=== PATIENT | male | born 1950 | race Caucasian/White ===

== ENCOUNTER → 2016-12-29 | Outpatient (CLI) | payer BC ==
[~2016-12-29] VITALS: Ht 172.7 cm; Wt 94.0 kg
[~2016-12-29] MED LIST: 24 HOUR ALLER15.8 ML; AMLODIPINE-BEN1 EAC5 PO; AMLODIPINE-BENA1 CA3 PO; AMOXIL500 M1 PO; ASPIRIN EC81 M1 PO; ASPIRIN81 M1 PO; ASPIRIN81 M2; ASPIRIN81 M2 PO; ASPIRINEC PO; ASTELIN137 MCG INH; AVODART0.5 MG PO; BACLOFEN10 MG PO; BACTRIM DS TABL1 TA1; BACTRIM DS TABL1 TA1 PO; BENAZEPRIL HCL40 MG PO; CALCIUM 500 +1 EAC2 PO; CALCIUM 500 MG1 TAB PO; CIPRO PO; COLCHICINE0.6 M1 PO; D-20002000 UNIT PO; DEPO-TESTOTERO100 MG; DEPO-TESTOTERO100 MG IM; FISH OIL 1,0001 CAP PO; FLOMAX0.4 M1 PO; FLOMAX0.4 MG PO; FLONASE 0.05% N16 G1; GLIPIZIDE XL5 MG PO; GLUCOTROL XL PO; HCTZ PO; HYDROCHLOROTHIA25 MG PO; HYDROCODONE-APA1 T56 PO; IBUPROFEN PO; IBUPROFEN800 MG PO; ILOTYCIN1 GM OP; JANUMET 50-501 UDTAB PO; LOPRESSOR PO; LOTREL 10-40 M1 EACH PO; LOTREL 5/10 MG1 CAP PO; LOVAZA1 G PO; LOVAZA1 GM; MEDROL4 MG/DOSE- PO; MELOXICAM15 MG PO; METFORMIN HCL1000 M2 PO; METFORMIN PO; METOPROLOL SUCC25 MG PO; METOPROLOL TART25 MG PO; MOBIC15 MG PO; MUCINEX PO; MULTIVITAMINS1 EAC4; NORCO 5/325 TAB1 TAB PO; OMEGA 3 1,0001 EACH PO; OMEGA 3 FISH OI1 CAP PO; OS-CAL 500 + D500 MG PO; PANTOPRAZOLE SO40 MG PO; PERCOCET PO; PROTONIX PO; TESTOSTERON100 MG/ML IM; TOPROL XL PO; TOVIAZ4 MG PO; TYLENOL #3 PO; TYLENOL325 M1 PO; VITAMIN D-32000 UNIT PO; VOLTAREN75 MG PO; WELCHOL3.75 GM PO; WELCHOL625 M1 PO; WELCHOL625 MG PO; ZOVIRAX800 MG PO
--- NOTE | ~2016-12-29 | DS ---
Unit #: [id number] #: [id number] Patient: LOVE LYONS [id number] [facility]. [place], [place] [address] [id number] MR#: [id number] NAME: LOVE LYONS ROOM: Age: 66 Sex: M Admission Date: 12/29/2016 : 1950 Discharge Date: Attending Physician: Jhon Perez M.D. Primary Care Physician: Naren Marcum M.D. DISCHARGE SUMMARY HISTORY A 66-year-old white male with history of hypertension, insulin-dependent diabetes mellitus, hyperlipidemia, and sick sinus node syndrome with history of presyncope that necessitated a permanent pacemaker insertion and was seen in the office yesterday when he complained of exertional angina occurring on during his bicycle ride and relieved by rest. He was advised to consider cardiac catheterization to which he agreed and was brought to the hospital for the same. Details of the history and physical, I dictated in my [facility] HOSPITAL COURSE Cardiac catheterization was performed, which showed left ventricular ejection fraction of about 50% without segmental wall motion abnormalities. There was mild left ventricular hypertrophy. Left main coronary artery showed a 40% to 50% ostial stenosis. Left anterior descending artery showed two areas of 90% to 95% stenosis in its proximal third with the distal two-thirds of the artery being normal. First diagonal branch of LAD showed two areas of 99% stenosis in its proximal third with the distal vessel being normal and bypassable. Circumflex coronary was a nondominant vessel and showed both marginal branches to be normal. Right coronary artery is a large caliber dominant vessel and showed about 80% to 85% stenosis at the junction of the proximal two-thirds and distal one-third. There was 30% to 40% stenosis in the posterior left ventricular branch of RCA. Cineangiograms were reviewed with Dr. Dmitriy Joshi and Dr. Tello Segal, and everyone agreed that the patient needed coronary artery bypass graft surgery with HOANG graft to LAD, vein graft to the diagonal branch of LAD, vein graft to the marginal branch of circumflex, and a vein graft to the distal right coronary artery. The patient would be scheduled for surgery in the early part of next week because of scheduling constraints. He will go home and is advised not to do any heavy physical work. He has been taught the appropriate use of sublingual nitroglycerin for angina pectoris. I have advised him to continue Glucophage 1 g b.i.d., hold WelChol, continue benazepril 40 mg at bedtime, aspirin 81 mg daily, calcium 500 mg every evening, Protonix 40 mg daily, Toviaz 4 mg daily, omega-3 fatty acids one daily, hydrochlorothiazide 25 mg daily, metoprolol 25 mg p.o. b.i.d., Lipitor 80 mg daily, Imdur 30 mg daily, sublingual nitroglycerin 0.4 mg p.r.n. for chest pain, and Ativan 0.5 mg b.i.d. FINAL DIAGNOSES 1. New onset exertional angina pectoris. 2. Diabetes mellitus, insulin-dependent type 2. Unit #: [id number] #: [id number] Patient: OLVE LYONS 3. History of nicotine abuse. 4. Status post permanent pacemaker implantation for presyncope related to sinus node dysfunction. 5. Anxiety. 6. Hypertension. Dictated by... Dunia Pollack/krystal TD: 12/30/2016 10:25 JOB #: [id number] CC: Dunia Todd M.D. DISCHARGE SUMMARY Page 1 of 1 X Jhon Perez MD X DISCHARGE SUMMARY
--- NOTE | ~2016-12-29 | EKG ---
PATIENT: LOVE LYONS UNIT #: [id number] Ventricular Rate: 64 BPM Atrial Rate: 64 BPM P-R Interval: 202 ms QRS Duration: 102 ms Q-T Interval: 410 ms QTC Calculation(Bezet): 422 ms P [place]: 54 degrees Calculated R [place]: -11 degrees Calculated T [place]: 130 degrees Diagnosis Line: Normal sinus rhythm Diagnosis Line: T wave abnormality, consider lateral ischemia Diagnosis Line: Abnormal ECG Diagnosis Line: When compared with ECG of 31-MAR-2016 08:22, Diagnosis Line: No significant change was found Diagnosis Line: Confirmed by QI PLAZA MD ([id number]) on 01/01/2017 Diagnosis Line: 3:17:54 PM INTERPRETING MD: MELA FRANCOIS
--- NOTE | ~2016-12-29 | EKG ---
PATIENT: LOVE LYONS UNIT #: [id number] Ventricular Rate: 60 BPM Atrial Rate: 60 BPM P-R Interval: 190 ms QRS Duration: 100 ms Q-T Interval: 426 ms QTC Calculation(Bezet): 426 ms P [place]: 0 degrees Calculated R [place]: -11 degrees Calculated T [place]: 134 degrees Diagnosis Line: Electronic atrial pacemaker Diagnosis Line: T wave abnormality, consider lateral ischemia Diagnosis Line: Abnormal ECG Diagnosis Line: When compared with ECG of 29-DEC-2016 08:13, Diagnosis Line: (unconfirmed) Diagnosis Line: Electronic atrial pacemaker has replaced Sinus Diagnosis Line: rhythm Diagnosis Line: Confirmed by QI PLAZA MD ([id number]) on 01/01/2017 Diagnosis Line: 3:18:22 PM INTERPRETING MD: MELA FRANCOIS
[2016-12-29 08:03] LABS: HEMATOCRIT 43.2 % (38.0-50.0); HEMOGLOBIN 14.4 gm/dL (13.0-16.0); MEAN CELL VOLUME 81.5 FL (83-96); MEAN CORPUSCULAR HEMOGLOBIN 27.1 PG (28-34); MEAN CORPUSCULAR HGB CONC 33.3 g/dL (30-36); MEAN PLATELET VOLUME 8.1 FL (6.5-11.5); RED BLOOD COUNT 5.3 X10e (3.90-5.60); WHITE BLOOD COUNT 7.3 X10e3 (4.0-10.5)
[2016-12-29 08:23] LABS: PARTIAL THROMBOPLASTIN TIME 27.8 SECONDS (23.5-31.3); PROTHROMBIN TIME (PATIENT) 10.8 SECONDS (10.0-11.7)
[2016-12-29 08:32] LABS: BUN/CREATININE RATIO 19.23; CALCIUM SERUM 9.4 mg/dL (8.4-10.2); CREATININE SERUM 1.3 mg/dL (0.6-1.4); GLOM FILT RATE Estimated 56.9 mL/min (>60)
== END | disposition home or self-care (01) ==
LOC: CCVL 07:36
PROVIDERS: Internal Medicine Cardiovascular Disease
DX: I25.110 Atherosclerotic heart disease of native coronary artery with unstable angina pectoris (principal); I10 Essential (primary) hypertension; E11.9 Type 2 diabetes mellitus without complications; M79.1 Myalgia; E78.5 Hyperlipidemia, unspecified; T46.6X5A Adverse effect of antihyperlipidemic and antiarteriosclerotic drugs, initial encounter; Z88.1 Allergy status to other antibiotic agents; Z88.5 Allergy status to narcotic agent; Z88.8 Allergy status to other drugs, medicaments and biological substances; Z79.82 Long term (current) use of aspirin; Z79.84 Long term (current) use of oral hypoglycemic drugs; Z79.899 Other long term (current) drug therapy; Z95.0 Presence of cardiac pacemaker
CPT/HCPCS: 36415; 80048; 82947; 85027; 85610; 85730; 93005; 99152; 99153; C1769; C1887; C1894; J1644; J2250; J3010

== ENCOUNTER 2016-12-30 15:32 | Inpatient (IN) | payer BC ==
[~2016-12-30] VITALS: Ht 172.7 cm; Wt 94.4 kg
--- NOTE | ~2016-12-30 | EKG ---
PATIENT: LOVE LYONS UNIT #: [id number] Ventricular Rate: 60 BPM Atrial Rate: 60 BPM P-R Interval: 168 ms QRS Duration: 98 ms Q-T Interval: 420 ms QTC Calculation(Bezet): 420 ms P [place]: -15 degrees Calculated R [place]: -6 degrees Calculated T [place]: 132 degrees Diagnosis Line: Electronic atrial pacemaker Diagnosis Line: ST and T wave abnormality, consider lateral ischemia Diagnosis Line: Abnormal ECG Diagnosis Line: When compared with ECG of 29-DEC-2016 13:40, Diagnosis Line: (unconfirmed) Diagnosis Line: T wave inversion more evident in Lateral leads Diagnosis Line: Confirmed by QI PLAZA MD ([id number]) on 01/01/2017 Diagnosis Line: 3:26:29 PM INTERPRETING MD: MELA FRANCOIS
--- NOTE | ~2016-12-30 | EKG ---
PATIENT: LOVE LYONS UNIT #: [id number] Ventricular Rate: 67 BPM Atrial Rate: 67 BPM P-R Interval: 194 ms QRS Duration: 92 ms Q-T Interval: 404 ms QTC Calculation(Bezet): 426 ms P [place]: 37 degrees Calculated R [place]: -11 degrees Calculated T [place]: 134 degrees Diagnosis Line: Normal sinus rhythm Diagnosis Line: Septal infarct , age undetermined Diagnosis Line: ST and T wave abnormality, consider lateral ischemia Diagnosis Line: Abnormal ECG Diagnosis Line: No previous ECGs available Diagnosis Line: Confirmed by QI PLAZA MD ([id number]) on 01/01/2017 Diagnosis Line: 3:23:53 PM INTERPRETING MD: MELA FRANCOIS
--- NOTE | ~2016-12-30 | DS ---
Unit #: [id number] #: [id number] Patient: LOVE UREÑA [id number] [facility]. [place], [place] [address] [id number] I MR#: [id number] NAME: LOVE UREÑA. ROOM: 311 Age: 66 Sex: M Admission Date: 12/30/2016 : 1950 Discharge Date: 01/01/2017 Attending Physician: Jhon Perez M.D. Primary Care Physician: Naren Marcum M.D. DISCHARGE SUMMARY ADDENDUM The patient will be transferred to [facility] today via ambulance. His transfer medications are Glucotrol XL 5 mg daily before breakfast, nitroglycerin ointment 0.5 inch b.i.d., vitamin D 2000 units daily, Tylenol 650 mg q.6 hours p.r.n., Flonase daily, Lovenox 100 mg subcu q.12 hours, Lipitor 80 mg q.h.s., Ativan 0.5 mg q.6 hours p.r.n., Welchol 1875 mg p.o. b.i.d., Toprol-XL 25 mg b.i.d., hydrochlorothiazide 25 mg daily, Lotensin 40 mg daily, insulin R low-dose sliding scale, multivitamin daily, aspirin 81 mg daily, Protonix 40 mg IV b.i.d., Os-Jens 500+D daily. Again, Mr. Ureña will be transferred to [facility], and Dr. Segal will be consulted for coronary artery bypass grafting. Dictated by... Delores Rendon P.A.C. for Lawrence Plascencia M.D. CMG/krystal TD: 01/03/2017 23:01 JOB #: [id number] DISCHARGE SUMMARY Page 1 of 1 X X DISCHARGE SUMMARY
--- NOTE | ~2016-12-30 | EKG ---
PATIENT: LOVE LYONS UNIT #: [id number] Ventricular Rate: 65 BPM Atrial Rate: 65 BPM P-R Interval: 212 ms QRS Duration: 100 ms Q-T Interval: 408 ms QTC Calculation(Bezet): 424 ms P [place]: 61 degrees Calculated R [place]: -13 degrees Calculated T [place]: 117 degrees Diagnosis Line: Sinus rhythm with 1st degree A-V block Diagnosis Line: T wave abnormality, consider lateral ischemia Diagnosis Line: Abnormal ECG Diagnosis Line: When compared with ECG of 31-DEC-2016 06:19, Diagnosis Line: (unconfirmed) Diagnosis Line: Sinus rhythm has replaced Electronic atrial Diagnosis Line: pacemaker Diagnosis Line: T wave inversion less evident in Lateral leads Diagnosis Line: Confirmed by AKIL RUCKER MD ([id number]) on Diagnosis Line: 01/01/2017 3:55:12 PM INTERPRETING MD: LUIZA
--- NOTE | ~2016-12-30 | CR72 ---
[facility] A Service of [facility] RADIOLOGY TEXT RESULTS PATIENT: LOVE LYONS LOCATION: [facility] 311- : 50 UNIT #: [id number] AGE: [address]: Jhon Perez MD SEX: M ORDER DR: [id number] [facility] [address] [place] [facility]. [place], [place] [address] [id number] I MR#: [id number] Acc #: [id number] NAME: LOVE LYONS. : 1950 SEX: M STUDY DATE/TIME: 12/30/2016 16:25 UNIT: [address] ROOM: [facility] STUDY DESCRIPTION: CR Chest Single View Portable Attending Physician: Jhon Perez M.D. Ordering Physician: [facility] Primary Care Physician: Naren Marcum M.D. MEDICAL IMAGING REPORT This report is preliminary unless electronic signature is present EXAM AP portable view of the chest HISTORY Chest pain. Cough. Symptoms started today. COMPARISON STUDIES 03/31/2016. FINDINGS AP portable view of the chest is obtained. Heart size and vascularity are normal. The lungs are clear. Dual-lead pacemaker is present. The bones are unremarkable. IMPRESSION No active disease. Dictated by... Jack Gross M.D. THIS IS AN ELECTRONICALLY VERIFIED REPORT Jack Gross M.D. at 12/31/2016 7:41 AM FEL/pcl TD: 12/31/2016 04:55 JOB #: [id number] MEDICAL IMAGING REPORT Page 1 of 1 COPY
[~2016-12-30 15:32] MED LIST changes: -ASPIRIN EC81 M1 PO; -D-20002000 UNIT PO; -FLONASE 0.05% N16 G1; -GLIPIZIDE XL5 MG PO; -LOVAZA1 GM; -METFORMIN HCL1000 M2 PO; -MOBIC15 MG PO; -MULTIVITAMINS1 EAC4; -OS-CAL 500 + D500 MG PO; -PANTOPRAZOLE SO40 MG PO; -TOPROL XL PO; -WELCHOL625 M1 PO
[2016-12-30 16:22] LABS: POC - CKMB 2.9 ng/mL (0.0-7.9); POC - TROPONIN 0.51 ng/mL (<=0.05)
[2016-12-30 16:29] LABS: BASOPHIL% 0.6 % (0-2.5); DIFF IND NO; EOSINOPHIL# 0.2 X10e3 (0-0.7); HEMATOCRIT 40.5 % (38.0-50.0); HEMOGLOBIN 13.5 gm/dL (13.0-16.0); LYMPHOCYTE% 23.8 % (17.0-45.0); MEAN CELL VOLUME 82.3 FL (83-96); MEAN CORPUSCULAR HEMOGLOBIN 27.5 PG (28-34); MEAN CORPUSCULAR HGB CONC 33.4 g/dL (30-36); MEAN PLATELET VOLUME 8.6 FL (6.5-11.5); MONOCYTE# 1.2 X10e3 (0-1.0); MONOCYTE% 14.1 % (3.0-12.0); NEUTROPHIL# 4.9 X10e3 (1.5-7.1); NEUTROPHIL% 59.5 % (40-75); PLATELET COUNT 169 X10e3 (140-420); RED BLOOD COUNT 4.92 X10e (3.90-5.60); RED CELL DISTRIBUTION WIDTH 16.7 % (11.0-15.5); WHITE BLOOD COUNT 8.3 X10e3 (4.0-10.5)
[2016-12-30 16:34] LABS: PARTIAL THROMBOPLASTIN TIME 26.4 SECONDS (23.5-31.3); PROTHROMBIN TIME (PATIENT) 10.9 SECONDS (10.0-11.7)
[2016-12-30 16:48] LABS: ALBUMIN SERUM 3.3 g/dL (3.5-5.0); BILIRUBIN, DIRECT 0.1 mg/dL (0.0-0.2); BILIRUBIN,INDIRECT 0.6 mg/dL (0.0-0.9); BILIRUBIN,TOTAL 0.7 mg/dL (0.2-2.0); BUN/CREATININE RATIO 14.54; CALCIUM SERUM 9.2 mg/dL (8.4-10.2); CREATININE SERUM 1.1 mg/dL (0.6-1.4); GLOM FILT RATE Estimated 69.6 mL/min (>60); POTASSIUM 3.8 mmol/L (3.5-5.1); PROTEIN TOTAL SERUM 6.5 g/dL (6.0-8.3)
[2016-12-30 18:36] LABS: POC - CKMB 3.2 ng/mL (0.0-7.9); POC - TROPONIN 0.56 ng/mL (<=0.05)
[2016-12-30] MEDS ORDERED: ASPIRIN EC81 M1 PO (20:35)
[2016-12-30] MEDS ORDERED: BENAZEPRIL HCL40 MG PO (20:35)
[2016-12-30] MEDS ORDERED: OS-CAL 500 + D500 MG PO (20:36)
[2016-12-30] MEDS ORDERED: D-20002000 UNIT PO (20:36)
[2016-12-30] MEDS ORDERED: WELCHOL625 M1 PO (20:37)
[2016-12-30] MEDS ORDERED: FLONASE 0.05% N16 G1 (20:37)
[2016-12-30] MEDS ORDERED: GLIPIZIDE XL5 MG PO (20:38)
[2016-12-30] MEDS ORDERED: HYDROCHLOROTHIA25 MG PO (20:38)
[2016-12-30] MEDS ORDERED: IBUPROFEN PO (20:39)
[2016-12-30] MEDS ORDERED: MOBIC15 MG PO (20:39)
[2016-12-30] MEDS ORDERED: METFORMIN HCL1000 M2 PO (20:39)
[2016-12-30] MEDS ORDERED: MULTIVITAMINS1 EAC4 (20:41)
[2016-12-30] MEDS ORDERED: TOPROL XL PO (20:41)
[2016-12-30] MEDS ORDERED: PANTOPRAZOLE SO40 MG PO (20:42)
[2016-12-30] MEDS ORDERED: LOVAZA1 GM (20:42)
[2016-12-31 00:36] LABS: %MB 5.9 % (0.0-4.0); MB 3.8 ng/ml
[2016-12-31 07:27] LABS: CK TOTAL 58 IU/L (36-174)
[2016-12-31 12:51] LABS: HEMATOCRIT 40.7 % (38.0-50.0); HEMOGLOBIN 13.3 gm/dL (13.0-16.0); MEAN CELL VOLUME 82.2 FL (83-96); MEAN CORPUSCULAR HEMOGLOBIN 26.8 PG (28-34); MEAN CORPUSCULAR HGB CONC 32.6 g/dL (30-36); MEAN PLATELET VOLUME 8.8 FL (6.5-11.5); RED BLOOD COUNT 4.95 X10e (3.90-5.60); RED CELL DISTRIBUTION WIDTH 16.9 % (11.0-15.5)
[2016-12-31 13:10] LABS: CK TOTAL 26 IU/L (36-174)
[2016-12-31 13:27] LABS: BUN/CREATININE RATIO 14.54; CALCIUM SERUM 8.8 mg/dL (8.4-10.2); CREATININE SERUM 1.1 mg/dL (0.6-1.4); GLOM FILT RATE Estimated 69.6 mL/min (>60); POTASSIUM 4.1 mmol/L (3.5-5.1)
[2017-01-01 06:13] LABS: HEMATOCRIT 44.3 % (38.0-50.0); HEMOGLOBIN 14.6 gm/dL (13.0-16.0); MEAN CELL VOLUME 82.2 FL (83-96); MEAN CORPUSCULAR HEMOGLOBIN 27.2 PG (28-34); MEAN PLATELET VOLUME 8.4 FL (6.5-11.5); RED BLOOD COUNT 5.39 X10e (3.90-5.60); RED CELL DISTRIBUTION WIDTH 16.3 % (11.0-15.5); WHITE BLOOD COUNT 7.6 X10e3 (4.0-10.5)
[2017-01-01 06:53] LABS: ALBUMIN SERUM 3.7 g/dL (3.5-5.0); BILIRUBIN,TOTAL 0.8 mg/dL (0.2-2.0); BUN/CREATININE RATIO 12.72; CREATININE SERUM 1.1 mg/dL (0.6-1.4); GLOM FILT RATE Estimated 69.6 mL/min (>60); POTASSIUM 3.5 mmol/L (3.5-5.1); PROTEIN TOTAL SERUM 7.4 g/dL (6.0-8.3)
== END 2017-01-01 14:54 | DRG 282 ==
LOC: CED 15:32 → CEDOF 18:18 → C3A PCU 18:33 → CEDOF 18:33 → CED 18:33 → CEDOF 21:48 → C3A PCU 21:48
PROVIDERS: Emergency Medicine; Internal Medicine Cardiovascular Disease; Nurse Practitioner
DX: I21.4 Non-ST elevation (NSTEMI) myocardial infarction (principal); I27.2 Other secondary pulmonary hypertension; E11.9 Type 2 diabetes mellitus without complications; I08.1 Rheumatic disorders of both mitral and tricuspid valves; I25.10 Atherosclerotic heart disease of native coronary artery without angina pectoris; F41.9 Anxiety disorder, unspecified; Z95.0 Presence of cardiac pacemaker; Z79.84 Long term (current) use of oral hypoglycemic drugs
CPT/HCPCS: 36415; 71010; 80048; 80053; 80061; 80076; 82550; 82553; 82947; 84443; 84484; 85025; 85027; 85610; 85730; 93005; 96374; 96375; 99285; C9113; J1327; J1650; J2270; J2405